=== PATIENT | male | born 1955 | race Caucasian/White ===

== ENCOUNTER → 2017-12-25 | Outpatient (REF) | payer BC ==
[2017-12-26 14:58] LABS: BACTERIA, URINE NONE SEEN; HYALINE CAST, URINE NONE SEEN /lpf (0-1); MICROSCOPIC EXAM PERFORMED; MUCUS, URINE SMALL AMOUNT (NEGATIVE); RBC, URINE 0-1 /hpf (0-3); SQUAMOUS EPITHELIAL CELL URINE SMALL AMOUNT /hpf (SMALL AMT); WBC, URINE 0-1 /hpf (0-3)
[2017-12-26 15:21] LABS: FERRITIN 381 NG/ML (26-388); IRON (FE) 65 UG/DL (65-175); PERCENT SATURATION 22.9 % (19.7-50.0); TOTAL IRON BINDING CAPACITY 284 UG/DL (250-450)
== END ==
LOC: M LAB REF 12-26 13:37
DX: R31.29 Other microscopic hematuria (principal); I10 Essential (primary) hypertension; D63.1 Anemia in chronic kidney disease
CPT/HCPCS: 83550

== ENCOUNTER → 2018-01-01 | Outpatient (CLI) | payer BC | LOC: M RAD 06:41 | DX: I15.0 Renovascular hypertension (principal); N18.6 End stage renal disease; N40.0 Benign prostatic hyperplasia without lower urinary tract symptoms | CPT/HCPCS: 76775 ==

== ENCOUNTER → 2018-04-23 | Outpatient (CLI) | payer BC | LOC: M RAD 09:13 | DX: N18.3 Chronic kidney disease, stage 3 (moderate) (principal) | CPT/HCPCS: 78707 ==